=== PATIENT | female | born 1980 | race Asian ===

== ENCOUNTER 2019-01-14 09:33 | Emergency (ER) | payer OTHER ==
[2019-01-14] MEDS: ALBUTEROL 0.083% (NEB) 2.5 MG/3 ML AMP NEB (11:12)
[2019-01-14 12:04] LABS: ADD MAN DIFF? NO
[2019-01-14 12:06] LABS: BASOPHILS % 0.3 % (0.0-2.0); EOSINOPHILS % 0.5 % (0.0-7.0); HEMATOCRIT 33.2 % (37.0-47.0); HEMOGLOBIN 11.2 g/dl (12.0-16.0); LYMPHOCYTES # 1.7 10^3/ul (0.8-2.9); LYMPHOCYTES % 23.2 % (15.0-51.0); MEAN CORPUSCULAR HEMOGLOBIN 33.4 pg (29.0-33.0); MEAN CORPUSCULAR HGB CONC 33.7 g/dl (32.0-37.0); MEAN CORPUSCULAR VOLUME 99.1 fl (82.0-101.0); MEAN PLATELET VOLUME 10.3 fl (7.4-10.4); MONOCYTE # 0.9 10^3/ul (0.3-0.9); MONOCYTES % 11.9 % (0.0-11.0); NEUTROPHIL # 4.7 10^3/ul (1.6-7.5); NEUTROPHILS % 63.6 % (39.0-77.0); PLATELET COUNT 132 10^3/UL (140-415); RED BLOOD COUNT 3.35 10^6/ul (4.20-5.40); RED CELL DISTRIBUTION WIDTH 13.3 % (11.5-14.5)
[2019-01-14 12:06] LABS: WHITE BLOOD COUNT 7.4 10^3/ul (4.8-10.8)
[2019-01-14 12:45] LABS: ANION GAP 9 (5-13); BLOOD UREA NITROGEN 5 mg/dl (7-20); CALCIUM 8.4 mg/dl (8.4-10.2); CARBON DIOXIDE 21 mmol/L (21-31); CHLORIDE 109 mmol/L (97-110); CREATININE 0.47 mg/dl (0.44-1.00); Estimated GFR > 60 mL/min (>60); GLUCOSE 82 mg/dl (70-220); POTASSIUM 3.4 mmol/L (3.5-5.1); SODIUM 139 mmol/L (135-144)
== END 2019-01-14 12:32 | disposition home or self-care (01) ==
LOC: FTE 09:33
DX: R05 Cough (principal)
CPT/HCPCS: 80048; 85025; 94664; 99283-25

== ENCOUNTER 2019-01-16 15:50 | Inpatient (IN) | payer OTHER ==
[2019-01-16 17:30] LABS: ADD MAN DIFF? NO
[2019-01-16 17:35] LABS: WHITE BLOOD COUNT 6.5 10^3/ul (4.8-10.8)
[2019-01-16 17:35] LABS: BASOPHILS % 0.3 % (0.0-2.0); EOSINOPHILS % 0.5 % (0.0-7.0); HEMOGLOBIN 11.4 g/dl (12.0-16.0); LYMPHOCYTES # 0.9 10^3/ul (0.8-2.9); LYMPHOCYTES % 13.8 % (15.0-51.0); MEAN CORPUSCULAR HEMOGLOBIN 32.1 pg (29.0-33.0); MEAN CORPUSCULAR HGB CONC 32.6 g/dl (32.0-37.0); MEAN CORPUSCULAR VOLUME 98.6 fl (82.0-101.0); MEAN PLATELET VOLUME 10.6 fl (7.4-10.4); MONOCYTE # 0.6 10^3/ul (0.3-0.9); MONOCYTES % 9.3 % (0.0-11.0); NEUTROPHILS % 75.8 % (39.0-77.0); PLATELET COUNT 173 10^3/UL (140-415); RED BLOOD COUNT 3.55 10^6/ul (4.20-5.40); RED CELL DISTRIBUTION WIDTH 13.4 % (11.5-14.5)
[2019-01-16 17:50] LABS: LACTIC ACID 1.1 mmol/L (0.5-2.0)
[2019-01-16 18:02] LABS: ALANINE AMINOTRANSFERASE 22 IU/L (13-69); ALBUMIN 3.4 g/dl (3.3-4.9); ALKALINE PHOSPHATASE 190 IU/L (42-121); ANION GAP 7 (5-13); ASPARTATE AMINO TRANSFERASE 35 IU/L (15-46); BILIRUBIN,INDIRECT 0.8 mg/dl (0-1.1); BILIRUBIN,TOTAL 0.8 mg/dl (0.2-1.3); BLOOD UREA NITROGEN 6 mg/dl (7-20); CALCIUM 8.7 mg/dl (8.4-10.2); CARBON DIOXIDE 24 mmol/L (21-31); CHLORIDE 106 mmol/L (97-110); CREATININE 0.52 mg/dl (0.44-1.00); Estimated GFR > 60 mL/min (>60); GLUCOSE 102 mg/dl (70-220); POTASSIUM 3.7 mmol/L (3.5-5.1); SODIUM 137 mmol/L (135-144); TOTAL PROTEIN 6.8 g/dl (6.1-8.1)
[2019-01-16] MEDS ORDERED: AZITHROMYCIN 500MG/NS (PMX) 250 ML IVPB (18:30)
[2019-01-16] MEDS ORDERED: ALBUTEROL HFA 8 GM INHALER INH (18:30)
[2019-01-16] MEDS ORDERED: PROMETHAZINE/CODEINE 5ML CUP PO (18:30)
[2019-01-16] MEDS ORDERED: CEFTRIAXONE 1 GM/50 ML (PMX) 50 ML IVPB (18:30)
[2019-01-16] MEDS ORDERED: ACETAMINOPHEN 500 MG TAB PO (18:30)
[2019-01-16] MEDS ORDERED: OSELTAMIVIR 75 MG CAP PO (18:30)
[2019-01-16] MEDS ORDERED: ONDANSETRON (ODT) 4 MG TAB ODT (18:30)
[2019-01-16] MEDS ORDERED: ACETAMINOPHEN 325 MG TAB PO (18:30)
[2019-01-16] MEDS: LACTATED RINGER'S 1,000 ML IV ×2 (18:56→21:49)
[2019-01-16] MEDS: PROMETHAZINE/CODEINE 5ML CUP PO (19:17)
[2019-01-16 20:37] LABS: HAAIG REFLEX REFLEX FILED
[2019-01-16 20:56] LABS: C-REACTIVE PROTEIN 7.1 mg/dl (0.0-0.9)
[2019-01-16] MEDS: CEFTRIAXONE 1 GM/50 ML (PMX) 50 ML IVPB (21:44)
[2019-01-16] MEDS: BENZONATATE 100 MG CAP PO (21:48)
[2019-01-16] MEDS: MOMETASONE 0.24 GM INHALER INH (21:50)
[2019-01-16 22:00] LABS: HEPATITIS C VIRAL ANTIBODY NEGATIVE (NEGATIVE)
[2019-01-16] MEDS: OSELTAMIVIR 75 MG CAP PO (22:30)
[2019-01-16] MEDS: AZITHROMYCIN 500MG/NS (PMX) 250 ML IVPB (22:36)
[2019-01-16 22:39] LABS: HEPATITIS B CORE ANTIBODY REACTIVE (NEGATIVE); HEPATITIS B SURFACE ANTIGEN POSITIVE (NEGATIVE)
[2019-01-16] MEDS: ALBUTEROL 0.083% (NEB) 2.5 MG/3 ML AMP NEB (22:46)
[2019-01-16] MEDS: HYDROCODONE/APAP (5/325) TAB PO (23:30)
[2019-01-16 23:31] LABS: HEPATITIS B SURFACE ANTIBODY NEGATIVE (NEGATIVE)
[2019-01-17] MEDS: DIPHENHYDRAMINE 25 MG CAP PO ×2 (00:10→22:52)
[2019-01-17 00:31] LABS: PROCALCITONIN 0.06 ng/mL (0.00-0.10)
[2019-01-17] MEDS: LACTATED RINGER'S 1,000 ML IV ×4 (03:00→18:39)
[2019-01-17] MEDS: PROMETHAZINE/CODEINE 5ML CUP PO ×2 (05:41→17:20)
[2019-01-17 06:26] LABS: ADD MAN DIFF? NO
[2019-01-17 06:37] LABS: BASOPHILS % 0.3 % (0.0-2.0); EOSINOPHILS % 0.5 % (0.0-7.0); HEMATOCRIT 35.2 % (37.0-47.0); HEMOGLOBIN 11.4 g/dl (12.0-16.0); LYMPHOCYTES # 1.2 10^3/ul (0.8-2.9); LYMPHOCYTES % 18.8 % (15.0-51.0); MEAN CORPUSCULAR HEMOGLOBIN 32.3 pg (29.0-33.0); MEAN CORPUSCULAR HGB CONC 32.4 g/dl (32.0-37.0); MEAN CORPUSCULAR VOLUME 99.7 fl (82.0-101.0); MEAN PLATELET VOLUME 10.3 fl (7.4-10.4); MONOCYTE # 0.6 10^3/ul (0.3-0.9); MONOCYTES % 9.3 % (0.0-11.0); NEUTROPHIL # 4.6 10^3/ul (1.6-7.5); NEUTROPHILS % 70.5 % (39.0-77.0); PLATELET COUNT 175 10^3/UL (140-415); RED BLOOD COUNT 3.53 10^6/ul (4.20-5.40); RED CELL DISTRIBUTION WIDTH 13.6 % (11.5-14.5)
[2019-01-17 06:37] LABS: WHITE BLOOD COUNT 6.5 10^3/ul (4.8-10.8)
[2019-01-17 07:01] LABS: ALANINE AMINOTRANSFERASE 22 IU/L (13-69); ALBUMIN 3.1 g/dl (3.3-4.9); ALBUMIN/GLOBULIN RATIO 0.88; ALKALINE PHOSPHATASE 191 IU/L (42-121); ANION GAP 10 (5-13); ASPARTATE AMINO TRANSFERASE 24 IU/L (15-46); BILIRUBIN,INDIRECT 0.7 mg/dl (0-1.1); BILIRUBIN,TOTAL 0.7 mg/dl (0.2-1.3); BLOOD UREA NITROGEN 5 mg/dl (7-20); CALCIUM 8.7 mg/dl (8.4-10.2); CARBON DIOXIDE 24 mmol/L (21-31); CHLORIDE 107 mmol/L (97-110); CREATININE 0.55 mg/dl (0.44-1.00); Estimated GFR > 60 mL/min (>60); GLUCOSE 102 mg/dl (70-220); POTASSIUM 3.4 mmol/L (3.5-5.1); SODIUM 141 mmol/L (135-144); TOTAL PROTEIN 6.6 g/dl (6.1-8.1)
[2019-01-17] MEDS: BENZONATATE 100 MG CAP PO ×2 (08:04→21:00)
[2019-01-17] MEDS: MOMETASONE 0.24 GM INHALER INH ×2 (08:05→21:00)
[2019-01-17] MEDS: OSELTAMIVIR 75 MG CAP PO (08:05)
[2019-01-17] MEDS: TENOFOVIR 300 MG TAB PO (08:05)
[2019-01-17] MEDS: ALBUTEROL 0.083% (NEB) 2.5 MG/3 ML AMP NEB (09:17)
[2019-01-17] MEDS: IPRATROPIUM (NEB) 0.5 MG/2.5 ML AMP HHN (09:17)
[2019-01-17 10:03] LABS: ADD UMIC NO; UR ASCORBIC ACID NEGATIVE (NEGATIVE); UR BILIRUBIN (Dip) NEGATIVE (NEGATIVE); UR BLOOD (Dip) NEGATIVE (NEGATIVE); UR CLARITY CLEAR (CLEAR); UR COLOR YELLOW (YELLOW); UR GLUCOSE (Dip) NEGATIVE (NEGATIVE); UR KETONES (Dip) 1+ mg/dL (NEGATIVE); UR LEUKOCYTE ESTERASE (Dip) NEGATIVE Leu/ul (NEGATIVE); UR NITRITE (Dip) NEGATIVE (NEGATIVE); UR SPECIFIC GRAVITY (Dip) 1.006 (1.003-1.030); UR TOTAL PROTEIN (Dip) NEGATIVE (NEGATIVE); UR UROBILINOGEN (Dip) NEGATIVE (NEGATIVE)
[2019-01-17] MEDS: POTASSIUM CHLORIDE (SR) 20 MEQ TAB PO (16:21)
[2019-01-17] MEDS: BISACODYL (EC) 5 MG TAB PO (16:21)
[2019-01-17] MEDS: FLUTICASONE 0.05% 16 GM NAS SPRAY NASAL (16:48)
[2019-01-17] MEDS: CEFTRIAXONE 1 GM/50 ML (PMX) 50 ML IVPB ×2 (17:20→18:03)
[2019-01-17] MEDS: AZITHROMYCIN 500MG/NS (PMX) 250 ML IVPB (18:38)
[2019-01-17] MEDS: GUAIFENESIN 20 MG/ML 5ML CUP PO (21:02)
[2019-01-18] MEDS ORDERED: FLUTICASONE 0.05% 16 GM NAS SPRAY NASAL
[2019-01-18] MEDS: FLUTICASONE 0.05% 16 GM NAS SPRAY NASAL (00:06)
[2019-01-18] MEDS: PROMETHAZINE/CODEINE 5ML CUP PO (03:11)
[2019-01-18] MEDS: LACTATED RINGER'S 1,000 ML IV (03:11)
[2019-01-18 06:12] LABS: ADD MAN DIFF? NO
[2019-01-18 06:16] LABS: WHITE BLOOD COUNT 6.3 10^3/ul (4.8-10.8)
[2019-01-18 06:16] LABS: BASOPHILS % 0.3 % (0.0-2.0); EOSINOPHILS # 0.1 10^3/ul (0.0-0.5); HEMATOCRIT 30.2 % (37.0-47.0); HEMOGLOBIN 10.2 g/dl (12.0-16.0); LYMPHOCYTES # 1.3 10^3/ul (0.8-2.9); LYMPHOCYTES % 20.6 % (15.0-51.0); MEAN CORPUSCULAR HEMOGLOBIN 32.6 pg (29.0-33.0); MEAN CORPUSCULAR HGB CONC 33.8 g/dl (32.0-37.0); MEAN CORPUSCULAR VOLUME 96.5 fl (82.0-101.0); MEAN PLATELET VOLUME 10.1 fl (7.4-10.4); MONOCYTE # 0.6 10^3/ul (0.3-0.9); NEUTROPHIL # 4.3 10^3/ul (1.6-7.5); NEUTROPHILS % 68.5 % (39.0-77.0); PLATELET COUNT 164 10^3/UL (140-415); RED BLOOD COUNT 3.13 10^6/ul (4.20-5.40); RED CELL DISTRIBUTION WIDTH 13.5 % (11.5-14.5)
[2019-01-18 06:48] LABS: ALANINE AMINOTRANSFERASE 26 IU/L (13-69); ALBUMIN 2.7 g/dl (3.3-4.9); ALBUMIN/GLOBULIN RATIO 0.81; ALKALINE PHOSPHATASE 172 IU/L (42-121); ANION GAP 6 (5-13); ASPARTATE AMINO TRANSFERASE 23 IU/L (15-46); BILIRUBIN,INDIRECT 0.6 mg/dl (0-1.1); BILIRUBIN,TOTAL 0.6 mg/dl (0.2-1.3); BLOOD UREA NITROGEN 5 mg/dl (7-20); CALCIUM 8.9 mg/dl (8.4-10.2); CARBON DIOXIDE 24 mmol/L (21-31); CHLORIDE 105 mmol/L (97-110); CREATININE 0.51 mg/dl (0.44-1.00); Estimated GFR > 60 mL/min (>60); GLUCOSE 83 mg/dl (70-220); POTASSIUM 3.5 mmol/L (3.5-5.1); SODIUM 135 mmol/L (135-144)
[2019-01-18 09:37] LABS: HEPATITIS B SURFACE ANTIGEN REACTIVE (NON-REACTIVE)
[2019-01-18] MEDS: TENOFOVIR 300 MG TAB PO (09:42)
[2019-01-18] MEDS: MOMETASONE 0.24 GM INHALER INH (09:43)
[2019-01-22 16:51] LABS: HEPATITIS B DELTA ANTIBODY NEGATIVE
== END 2019-01-18 14:30 | disposition home or self-care (01) | DRG 832 ==
LOC: L-D 15:50 → 2NE 21:13
DX: O99.513 Diseases of the respiratory system complicating pregnancy, third trimester (principal); O98.413 Viral hepatitis complicating pregnancy, third trimester; B19.10 Unspecified viral hepatitis B without hepatic coma; J06.9 Acute upper respiratory infection, unspecified; J02.9 Acute pharyngitis, unspecified; J30.9 Allergic rhinitis, unspecified; R09.82 Postnasal drip; O23.03 Infections of kidney in pregnancy, third trimester; O09.523 Supervision of elderly multigravida, third trimester; Z3A.34 34 weeks gestation of pregnancy
CPT/HCPCS: 71046; 76818; 80053; 81003; 83605; 84145; 85025; 86140; 86692; 86704; 86706; 86709; 86803; 87070; 87086; 87340; 87400; 94640; 94664

== ENCOUNTER 2019-02-06 17:10 | Inpatient (IN) | payer OTHER ==
[2019-02-06] MEDS ORDERED: OXYTOCIN 30 UNITS/LR 500 ML IV ×2 (18:00)
[2019-02-06] MEDS ORDERED: CARBOPROST 250 MCG INJ IM (18:00)
[2019-02-06] MEDS ORDERED: LIDOCAINE 1% (MPF) 30 ML INJ INJ (18:00)
[2019-02-06] MEDS ORDERED: MISOPROSTOL 200 MCG TAB PR (18:00)
[2019-02-06] MEDS ORDERED: IBUPROFEN 600 MG TAB PO (18:00)
[2019-02-06] MEDS ORDERED: METHYLERGONOVINE 0.2 MG INJ IM (18:00)
[2019-02-06] MEDS ORDERED: BUTORPHANOL 2 MG INJ IV ×2 (18:00)
[2019-02-06] MEDS: LACTATED RINGER'S 1,000 ML IV ×3 (18:31→21:47)
[2019-02-06 19:01] LABS: ADD MAN DIFF? NO
[2019-02-06 19:03] LABS: WHITE BLOOD COUNT 6.2 10^3/ul (4.8-10.8)
[2019-02-06 19:03] LABS: BASOPHILS % 0.5 % (0.0-2.0); EOSINOPHILS # 0.1 10^3/ul (0.0-0.5); EOSINOPHILS % 1.6 % (0.0-7.0); HEMATOCRIT 37.5 % (37.0-47.0); HEMOGLOBIN 12.6 g/dl (12.0-16.0); LYMPHOCYTES # 1.3 10^3/ul (0.8-2.9); LYMPHOCYTES % 21.3 % (15.0-51.0); MEAN CORPUSCULAR HGB CONC 33.6 g/dl (32.0-37.0); MEAN CORPUSCULAR VOLUME 98.2 fl (82.0-101.0); MEAN PLATELET VOLUME 11.7 fl (7.4-10.4); MONOCYTE # 0.6 10^3/ul (0.3-0.9); MONOCYTES % 9.4 % (0.0-11.0); NEUTROPHIL # 4.1 10^3/ul (1.6-7.5); NEUTROPHILS % 66.6 % (39.0-77.0); PLATELET COUNT 153 10^3/UL (140-415); RED BLOOD COUNT 3.82 10^6/ul (4.20-5.40); RED CELL DISTRIBUTION WIDTH 13.8 % (11.5-14.5)
[2019-02-06 19:26] LABS: INR 0.81; PROTIME 11.3 Sec (11.9-14.9); PT RATIO 0.9
[2019-02-06 19:27] LABS: PARTIAL THROMBOPLASTIN TIME 25.8 Sec (23.0-35.0)
[2019-02-06 19:53] LABS: HEPATITIS B SURFACE ANTIGEN POSITIVE (NEGATIVE)
[2019-02-06] MEDS ORDERED: FENTAnyl 2MCG/ML-ROPIV 0.2% 100 ML BAG EPI (21:30)
[2019-02-06] MEDS ORDERED: NALOXONE (0.4 MG/ML) INJ IV (21:30)
[2019-02-06] MEDS ORDERED: MINERAL OIL LIGHT 10 ML VIAL TOP (22:00)
[2019-02-06] MEDS: OXYTOCIN 30 UNITS/LR 500 ML IV (23:40)
[2019-02-07] MEDS: OXYTOCIN 30 UNITS/LR 500 ML IV (00:38)
[2019-02-07] MEDS: LACTATED RINGER'S 1,000 ML IV* ×2 (00:40→05:00)
[2019-02-07] MEDS ORDERED: NA PHOSPHATE/BIPHOS 133 ML ENEMA PR (01:00)
[2019-02-07] MEDS ORDERED: DIBUCAINE 1% 30 GM OINT TOP (01:00)
[2019-02-07] MEDS ORDERED: MISOPROSTOL 200 MCG TAB PR (01:00)
[2019-02-07] MEDS ORDERED: DIPHENHYDRAMINE 25 MG CAP PO (01:00)
[2019-02-07] MEDS ORDERED: LANOLIN HPA 1 PKT TOP (01:00)
[2019-02-07] MEDS ORDERED: SENNA/DOCUSATE NA (8.6MG/50MG) TAB PO (01:00)
[2019-02-07] MEDS ORDERED: MAGNESIUM HYDROXIDE 30ML CUP PO (01:00)
[2019-02-07] MEDS ORDERED: DIPHENHYDRAMINE 50 MG INJ IV (01:00)
[2019-02-07] MEDS ORDERED: HYDROCODONE/APAP (5/325) TAB PO ×2 (01:00)
[2019-02-07] MEDS ORDERED: ONDANSETRON 4 MG INJ IV (01:00)
[2019-02-07] MEDS ORDERED: OXYTOCIN 30 UNITS/LR 500 ML IV (01:00)
[2019-02-07] MEDS ORDERED: ONDANSETRON 4 MG TAB PO (01:00)
[2019-02-07] MEDS ORDERED: CARBOPROST 250 MCG INJ IM (01:00)
[2019-02-07] MEDS: BENZOCAINE 20% 56 ML SPRAY TOP (05:37)
[2019-02-07] MEDS: WITCH HAZEL/GLYCERIN PAD PR (05:37)
[2019-02-07] MEDS: IBUPROFEN 600 MG TAB PO ×4 (05:37→19:27)
[2019-02-07] MEDS: SENNA/DOCUSATE NA (8.6MG/50MG) TAB PO ×2 (09:00→21:00)
[2019-02-07 18:23] LABS: RAPID PLASMA REAGIN NONREACTIVE (NR)
[2019-02-08 00:42] LABS: HEPATITIS B SURFACE ANTIGEN REACTIVE (NON-REACTIVE)
[2019-02-08] MEDS: IBUPROFEN 600 MG TAB PO ×3 (06:00→17:45)
[2019-02-08 08:11] LABS: ADD MAN DIFF? NO
[2019-02-08 08:20] LABS: WHITE BLOOD COUNT 8.9 10^3/ul (4.8-10.8)
[2019-02-08 08:20] LABS: BASOPHIL # 0.1 10^3/ul (0.0-0.1); BASOPHILS % 0.7 % (0.0-2.0); EOSINOPHILS # 0.2 10^3/ul (0.0-0.5); EOSINOPHILS % 1.8 % (0.0-7.0); HEMATOCRIT 33.5 % (37.0-47.0); LYMPHOCYTES # 1.8 10^3/ul (0.8-2.9); LYMPHOCYTES % 19.7 % (15.0-51.0); MEAN CORPUSCULAR HEMOGLOBIN 32.5 pg (29.0-33.0); MEAN CORPUSCULAR HGB CONC 32.8 g/dl (32.0-37.0); MEAN CORPUSCULAR VOLUME 99.1 fl (82.0-101.0); MEAN PLATELET VOLUME 11.7 fl (7.4-10.4); MONOCYTE # 0.7 10^3/ul (0.3-0.9); MONOCYTES % 7.5 % (0.0-11.0); NEUTROPHIL # 6.2 10^3/ul (1.6-7.5); NEUTROPHILS % 69.7 % (39.0-77.0); PLATELET COUNT 116 10^3/UL (140-415); RED BLOOD COUNT 3.38 10^6/ul (4.20-5.40)
[2019-02-08] MEDS: SENNA/DOCUSATE NA (8.6MG/50MG) TAB PO ×2 (09:00→14:56)
[2019-02-08] MEDS: DIPHTH/TET/ACEL PERTUSS (ADULT) 0.5 ML VIAL IM* (17:46)
[2019-02-09] MEDS ORDERED: MEASLES,MUMPS,RUBELLA VACCINE INJ SC* (09:00)
[2019-02-09] MEDS ORDERED: VARICELLA VACCINE LIVE/PF 1,350 UNIT/0.5 ML ML SC* (09:00)
== END 2019-02-08 18:35 | disposition home or self-care (01) | DRG 807 ==
LOC: OBT 17:10 → L-D 02-07 01:29 → PP1 02-07 02:40 → OBT 17:15 → L-D 17:16
PROVIDERS: Specialist
PROC: 10E0XZZ Delivery of Products of Conception, External Approach (ICD-10-PCS; principal; 2019-02-07)
DX: O80 Encounter for full-term uncomplicated delivery (principal); Z37.0 Single live birth; Z3A.37 37 weeks gestation of pregnancy
CPT/HCPCS: 62322; 85025; 85610; 85730; 86592; 86704; 86850; 86900; 86901; 87340; 99464